=== PATIENT | female | born 1955 | race Caucasian/White ===

== ENCOUNTER 2023-09-23 16:09 | Outpatient (RCR) | payer MEDICARE, BC | END 2023-09-27 | LOC: PT 16:09 | PROVIDERS: ATTEND Physician Assistant | DX: M16.11 Unilateral primary osteoarthritis, right hip (principal); M76.01 Gluteal tendinitis, right hip ==

== ENCOUNTER 2023-10-15 16:44 | Outpatient (RCR) | payer MEDICARE, BC | END 2023-10-28 | LOC: PT 16:44 | PROVIDERS: ATTEND Physician Assistant | DX: M16.11 Unilateral primary osteoarthritis, right hip (principal); M76.01 Gluteal tendinitis, right hip ==

== ENCOUNTER → 2025-01-11 | Outpatient (REF) | payer MEDICARE, BC | LOC: CT 13:34 | PROVIDERS: ATTEND Student in an Organized Health Care Education/Training Program | DX: M47.816 Spondylosis without myelopathy or radiculopathy, lumbar region (principal) | CPT/HCPCS: 72131 ==